=== PATIENT | female | born 1940 | race Caucasian/White ===

== ENCOUNTER → 2016-11-08 | Outpatient (CLI) | payer MEDICARE ==
--- NOTE | ~2016-11-08 | MY11 ---
[facility] A Service of [facility] RADIOLOGY TEXT RESULTS PATIENT: BEKAH CARDENAS LOCATION: [facility] : 44 UNIT #: [id number] AGE: [address]: Jourdan Bush MD SEX: F ORDER DR: [id number] [place] [id number] O MR#: [id number] Acc #: [id number] NAME: BEKAH CARDENAS : 1940 SEX: F STUDY DATE/TIME: 11/08/2016 14:10 UNIT: [facility] ROOM: STUDY DESCRIPTION: MY Mammogram Screening Dig Kranthi Attending Physician: Jourdan Bush M.D. Referring Physician: Jourdan Bush M.D. Ordering Physician: Jourdan Bush M.D. Primary Care Physician: Jourdan Bush M.D. MEDICAL IMAGING REPORT This report is preliminary unless electronic signature is present. EXAM Digital screening mammogram 11/08/2016 [facility] HISTORY 76-year-old woman with a personal history of ovarian cancer. Previous benign breast biopsy. Annual screen. COMPARISON Mammograms date to 03/17/2005 with most recent 11/04/2015. FINDINGS Digital imaging of each breast was completed utilizing a two-view examination of each breast in craniocaudal and mediolateral-oblique projections. Review and interpretation of digital mammograms include a second review in conjunction with FDA-approved CAD device. There is a normal parenchymal presentation bilaterally consistent with the patient's age. There are no breast masses imaged and no parenchymal asymmetry is visualized. There are no suspicious microcalcifications and I see no focal architectural disturbance. IMPRESSION Negative screening digital mammogram. One-year followup recommended. Patients over the age of 40 are entered into a reminder system with target due date for the next mammogram. A result letter will also be sent to the patient. BIRADS: 1 Negative ADDENDUM Breast parenchyma is fatty replaced. [facility] A Service [facility] RADIOLOGY TEXT RESULTS PATIENT: BEKAH CARDENAS LOCATION: [facility] : 42 UNIT #: [id number] AGE: [address]: Jourdan Bush MD SEX: F ORDER DR: Dictated by... Bernardino Herrera M.D. THIS IS AN ELECTRONICALLY VERIFIED REPORT Bernardino Herrera M.D. at 11/09/2016 8:10 AM MINO/moe TD: 11/08/2016 18:23 JOB #: [id number] MEDICAL IMAGING REPORT Page 1 of 1
== END | disposition home or self-care (01) ==
LOC: SMAM 13:26
DX: Z12.31 Encounter for screening mammogram for malignant neoplasm of breast (principal); Z85.43 Personal history of malignant neoplasm of ovary
CPT/HCPCS: G0202

== ENCOUNTER → 2017-01-05 | Outpatient (CLI) | payer MEDICARE ==
--- NOTE | ~2017-01-05 | CT57 ---
[facility] A Service of [facility] RADIOLOGY TEXT RESULTS PATIENT: BEKAH CARDENAS LOCATION: [facility] : 44 UNIT #: [id number] AGE: [address]: Erik Hernandez MD SEX: F ORDER DR: [id number] [facility] [address] [place], [place] [address] [id number] O MR#: [id number] Acc #: [id number] NAME: BEKAH CARDENAS : 1940 SEX: F STUDY DATE/TIME: 01/05/2017 10:43 UNIT: [facility] ROOM: STUDY DESCRIPTION: CT Chest Wo Cont Attending Physician: Erik Hernandez M.D. Referring Physician: Erik Hernandez M.D. Ordering Physician: Erik Hernandez M.D. Primary Care Physician: Jourdan Bush M.D. MEDICAL IMAGING REPORT This report is preliminary unless electronic signature is present EXAM CT chest without contrast DATE 01/05/2017 HISTORY 76-year-old female. Physician's order states uncomplicated bronchiectasis, other nonspecified abnormal finding of lung field. Patient states follow-up lung nodule, bronchiectasis. Patient states no current complaints. History of ovarian cancer in 2012. COMPARISON CT chest 05/03/2016, 12/05/2011, 09/02/2015, 04/26/2011 PROCEDURE 2 mm noncontrast axial images through the chest. Sagittal and coronal reformatted images were obtained. This CT exam was performed with one or more of the following radiation dose reduction techniques: automatic control, adjustment of mA and/or kV according to patient size, and iterative reconstruction. FINDINGS Cylindrical bronchiectasis, bronchiolectasis and bronchial wall thickening is demonstrated predominately within the right middle lobe, and lingula, to a lesser degree bilateral lower lobes and upper lobes. There is chronic volume loss in the right middle lobe and lingula. Extensive tree-in-bud nodular densities are seen throughout both lungs, and appears slightly improved within the posterior right upper lobe since previous examination. The tree-in-bud nodular densities elsewhere within both lungs otherwise appear relatively stable. Chronic biapical scarring noted. No pathologic adenopathy is seen. 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 No pericardial effusion, pleural effusion or pneumothorax. Included portions of the upper abdominal organs have a normal noncontrast appearance. IMPRESSION 1. Bronchiectasis, bronchiolectasis, and bronchial wall thickening, with scattered tree-in-bud nodular densities in both lungs, and volume loss within the right middle lobe and lingular segment left upper lobe. 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 Some of the tree-in-bud nodular densities in the posterior right upper lobe appears slightly improved since 05/03/2016, while the remainder of the findings appears essentially unchanged. 2. No new airspace disease. 3. 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 Mild calcification of the aortic valve. Correlate clinically for aortic stenosis. Dictated by... Ina Goldberg M.D. THIS IS AN ELECTRONICALLY VERIFIED REPORT Ina Goldberg M.D. at 01/06/2017 12:10 PM KEITH/brenna TD: 01/05/2017 17:16 JOB #: [id number] MEDICAL IMAGING REPORT Page 1 of 1 COPY
== END | disposition home or self-care (01) ==
LOC: CCAT 10:20
DX: J47.9 Bronchiectasis, uncomplicated (principal); R91.8 Other nonspecific abnormal finding of lung field; I71.2 Thoracic aortic aneurysm, without rupture; I35.8 Other nonrheumatic aortic valve disorders
CPT/HCPCS: 71250